=== PATIENT | male | born 1955 | race Caucasian/White ===

== ENCOUNTER 2024-04-10 12:34 | Outpatient (CLI) | payer OTHER ==
[~2024-04-10] VITALS: Ht 180.3 cm; Wt 115.7 kg
[2024-04-10 13:39] VITALS: PULSE 67; RESP 18; O2SAT 96
[2024-04-10 13:50] VITALS: PULSE 73; RESP 16
[2024-04-10] MEDS: albuterol 2.5 MG/3 ML nebule NEB ONE (14:20)
== END 2024-04-10 23:59 | disposition home or self-care (01) ==
LOC: RT 12:34
PROVIDERS: ATTEND Chiropractor
DX: J45.909 Unspecified asthma, uncomplicated (principal)
CPT/HCPCS: 94060; 94760

== ENCOUNTER 2024-05-03 10:07 | Outpatient (CLI) | payer OTHER | END 2024-05-03 23:59 | disposition home or self-care (01) | LOC: RAD 10:07 | PROVIDERS: ATTEND Chiropractor | DX: J45.909 Unspecified asthma, uncomplicated (principal) | CPT/HCPCS: 71046 ==